=== PATIENT | female | born 1955 | race African-American/Black ===

== ENCOUNTER 2019-03-31 05:39 | Inpatient (IN) | payer OTHER ==
[~2019-03-31] VITALS: Ht 167.6 cm; Wt 77.6 kg
[2019-03-31] VITALS (17 sets, daily range): BP systolic 91–126; BP diastolic 51–70
[~2019-03-31 05:39] MED LIST: AMLODIPINE BESYL5 MG ORAL; ENALAPRIL-HCTZ1 EACH ORAL; PANTOPRAZOLE SO40 MG ORAL; TRAMADOL HCL50 MG ORAL; Vit D PO
--- NOTE | 2019-03-31 06:23 | Pre-Procedure Note/Attestation ---
Pre-Procedure Note/Attestation Complete Prior to Procedure Planned Procedure: right Procedure Narrative: End Stage Degenerative Joint Disease, Right Knee For Right Total Knee Arthroplasty Indications for Procedure Pre-Operative Diagnosis: End Stage Degenerative Joint Disease, Right Knee Attestation I attest that I discussed the nature of the procedure; its benefits; risks and complications; and alternatives (and the risks and benefits of such alternatives ), prior to the procedure, with the patient (or the patient's legal sales representative consultant). I attest that, if there was a reasonable possibility of needing a blood transfusion, the patient (or the patient's legal sales representative consultant) was given the [place] [facility] standardized written summary, pursuant to the [place] Blood Safety Act ([place] Health and Safety Code # 1645, as amended). I attest that I re-evaluated the patient just prior to the surgery and that there has been no change in the patient's H&P, except as documented below: Familia Vargas Mar 31, 2019 06:23
[2019-03-31] MEDS ORDERED: fentaNYL 100 mcg/2 mL IV ONE ×2 (06:41→07:34)
[2019-03-31] MEDS ORDERED: Duramorph PF 5mg/10ml amp ONE (06:43)
[2019-03-31] MEDS ORDERED: Succinylcholine 20mg/ml 10ml vial ONE (06:50)
[2019-03-31] MEDS ORDERED: Zemuron 50mg/5ml Inj IV ONE (07:00)
[2019-03-31] MEDS ORDERED: Sterile Water Irrig 1000ml IRRIG ONE (07:00)
[2019-03-31] MEDS ORDERED: LR 1000ml ONE (07:00)
[2019-03-31] MEDS ORDERED: NS Irrig 1000ml ONE (07:00)
[2019-03-31] MEDS ORDERED: Bacitracin 50000 Units Vial IRRIG ONE (07:27)
[2019-03-31] MEDS ORDERED: NeoSporin Gu Irrig 1ml Amp IRRIG ONE (07:28)
[2019-03-31] MEDS ORDERED: NS Irrig 1000ml IRRIG ONE (07:29)
[2019-03-31] MEDS ORDERED: LR 1000ml 1,000 ML IVLG SCH (07:50)
--- NOTE | 2019-03-31 07:50 | Anethesia Preoperative Eval ---
Anesthesia Pre-op PMH/ROS General Date of Evaluation: Mar 31, 2019 Time of Evaluation: 07:02 Anesthesiologist: Tanner ASA Score: ASA 2 Mallampati Score Class I : Soft palate, uvula, fauces, pillars visible Class II: Soft palate, uvula, fauces visible Class III: Soft palate, base of uvula visible Class IV: Only hard plate visible Mallampati Classification: Class II Surgeon: Tylor Diagnosis: R knee DJD Surgical Procedure: R knee TKA Anesthesia History: none Family History: no anesthesia problems Allergies: Coded Allergies: No Known Allergies (Unverified , 03/28/19) Medications: see eMAR Patient NPO?: Yes NPO Date: Mar 30, 2019 NPO Time: 2100 Past Medical History Cardiovascular: Reports: HTN - stable on meds; Denies: CAD, SC, valve dz, arrhythmia, other Pulmonary: Denies: asthma, COPD, [place], other Gastrointestinal/Genitourinary: Reports: GERD - mild; Denies: CRI, ESRD, other Neurologic/Psychiatric: Denies: dementia, CVA, depression/anxiety, TIA, other Endocrine: Denies: DM, hypothyroidism, steroids, other HEENT: Denies: cataract (L), cataract (R), glaucoma, [place] (L), [place] (R), other Hematology/Immune: Denies: anemia, DVT, bleeding disorder, other Musculoskeletal/Integumentary: Reports: DJD; Denies: OA, RA, DDD, edema, other PMH Narrative: as above PSxH Narrative: Knee arthroscopy Anesthesia Pre-op Phys. Exam Physician Exam Last Vital Signs Date Time Temp Pulse Resp B/P (MAP) Pulse Ox O2 Delivery O2 Flow Rate FiO2 03/31/19 06:36 97.7 65 20 126/69 (88) 100 03/31/19 06:09 Room Air Constitutional: NAD Neurologic: CN 2-12 intact Cardiovascular: RRR, no M/R/G Respiratory: CTA Gastrointestinal: S/NT/ND Airway Exam Mallampati Score: Class II MO: full Neck: flexible ROM: full Teeth: intact Dentures: no upper, no lower Anesthesia Pre-op A/P Labs see chart Studies Pre-op Studies: EKG - NSR, CXR - WNL Risk Assessment & Plan Assessment: ASA 2 Plan: GA with ETT Status Change Before Surgery: No Pre-Antibiotics Drug: Ancef 1gr. Given Within 1 Hr of Incision: Yes Time Given: 07:28 Rashad Hart MD Mar 31, 2019 07:50
[2019-03-31] MEDS ORDERED: Acetaminophen (Non formulary) 100 ML IV ONE (08:00)
[2019-03-31] MEDS ORDERED: DiphenhydrAMINE 50mg/ml Inj IVP PRN (08:00)
[2019-03-31] MEDS ORDERED: Midazolam 2mg/2ml Inj IVP PRN (08:00)
[2019-03-31] MEDS ORDERED: Meperidine 50mg/ml Inj(FOR RIGORS ONLY) IV PRN (08:00)
[2019-03-31] MEDS ORDERED: Ketorolac 30mg Inj IV PRN (08:00)
[2019-03-31] MEDS ORDERED: Milk of Magnesia 30ml Ud ORAL PRN (09:45)
[2019-03-31] MEDS ORDERED: HYDROmorphone 1mg/ml Carpuject SUBQ PRN (09:45)
[2019-03-31] MEDS ORDERED: HYDROcodone/Acetamin 7.5/325 tab ORAL PRN (09:45)
--- NOTE | 2019-03-31 09:45 | Immediate Post-Op Evaluation ---
Immediate Post-Op Evalulation Immediate Post-Op Evalulation Procedure: R knee arthroplasty Date of Evaluation: Mar 31, 2019 Time of Evaluation: 09:44 IV Fluids: 1600 Blood Products: none Estimated Blood Loss: 200 Urinary Output: none Blood Pressure Systolic: 106 Blood Pressure Diastolic: 62 Pulse Rate: 86 Respiratory Rate: 22 O2 Sat by Pulse Oximetry: 99 Temperature (Fahrenheit): 97.7 Pain Score (1-10): 3 Nausea: No Vomiting: No Complications none Patient Status: reacts, patent, extubated, none Hydration Status: adequate Rashad Hart MD Mar 31, 2019 09:45
[2019-03-31] MEDS ORDERED: PCA HYDROmorphone 1mg/ml 30 ML IV PRN (10:00)
[2019-03-31] MEDS ORDERED: Naloxone 0.4mg/ml Inj IVP PRN (10:00)
--- NOTE | 2019-03-31 11:00 | NUR ---
NURSE NOTES: Received report from Twyla HAGAN, pt a/a/o, sleeping in bed with no signs of distress or other issues at this time. surgical dressing dry and intact, ice pack in place in the right knee. Hemovac in place clamped at 09:40 (per report 80ml was emptied prior to pts arrival). RN will open at 17:40. IV on the left wrist gauge#19 running LR for now RN will review orders and changed as indicated by MD. RN will review orders and carry on as indicated by MD. call light within reach, bed in lowest position. side rales up x2. family at bed side. I will f/u as needed. Addendum: 03/31/19 at 2307 by ARGENIS FLORES RN addendum: hemovac noted off suction with sanguineous drainage; will follow orders on care of hemovac.
[2019-03-31] MEDS ORDERED: Rate Change PCA 1 Each MISC PRN (12:00)
[2019-03-31] MEDS ORDERED: Acetaminophen 500mg (ES) tab ORAL SCH (13:00)
[2019-03-31] MEDS ORDERED: Docusate 100mg cap ORAL SCH (13:00)
[2019-03-31 13:10] LABS: HEMATOCRIT 34.4 % (37.0-47.0); HEMOGLOBIN 11.5 G/DL (12.0-16.0); MEAN CORPUSCULAR VOLUME 96 FL (80-99); PLATELET COUNT 228 K/UL (150-450); RED CELL DISTRIBUTION WIDTH 11.8 % (11.6-14.8); WHITE BLOOD COUNT 17.7 K/UL (4.8-10.8)
[2019-03-31] MEDS: Docusate 100mg tablet ORAL SCH ×2 (13:47→18:53)
[2019-03-31] MEDS: D5 1/2NS w/KCl 20mEq 1,000 ML IV SCH (13:47)
[2019-03-31] MEDS: Acetaminophen 500mg (ES) tab ORAL SCH ×2 (13:48→18:53)
--- NOTE | 2019-03-31 13:53 | NUR ---
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
--- NOTE | 2019-03-31 14:46 | NUR ---
PT NOTE Patient set up on CPM 0-45 degrees flexion RLE with good alignment. 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 Patient instructed in use of CPM control buttons and duration of CPM. Will begin OOB activities in the a.m. Jess primer charger notified of patient's status.
[2019-03-31] MEDS: ceFAZolin sod 1 GM in D5W 55 ML IV SCH ×2 (15:07→23:34)
[2019-03-31] MEDS: Docusate Sod/Senna tab ORAL SCH (18:53)
[2019-03-31] MEDS: PCA shift volume MISC SCH (19:00)
[2019-03-31] MEDS ORDERED: PCA Education Pamphlet MISC ONE (20:00)
--- NOTE | 2019-03-31 20:23 | NUR ---
HAND-OFF: Report given to Monika HAGAN. pt in stable condition. - CPM in place. Hemovac output: 50ml.
--- NOTE | 2019-03-31 21:00 | NUR ---
nurse's notes: received patient awake, alert and oriented; fiance by the bedside for support; s/o right knee replacement; denies any pain; dressing is clean, dry and intact; good CSM; able to wiggle toes; denies numbness and tingling; tolerating cpm machine at 60 degrees; plan of care and pain management education done; encouraged to use INSTRUMENT DESIGNER for pain; patient understood teaching; tolerated sitting at EOB however, unable to stand up due to dizziness and nausea; zofran given; ice on surgical site. will continue to monitor
--- NOTE | 2019-04-01 03:00 | NUR ---
nurse's notes: hemovacc now to suction as ordered.
[2019-04-01] MEDS: D5 1/2NS w/KCl 20mEq 1,000 ML IV SCH ×2 (03:08→15:23)
[2019-04-01 04:00] VITALS: BP 112/70
[2019-04-01] MEDS: ceFAZolin sod 1 GM in D5W 55 ML IV SCH ×3 (06:50→23:44)
[2019-04-01] MEDS: PCA shift volume MISC SCH ×2 (07:14→19:13)
[2019-04-01 07:24] LABS: BASOPHILS % (AUTO) 0.4 % (0.0-2.0); EOSINOPHILS % (AUTO) 0.8 % (0.0-3.0); HEMATOCRIT 31.3 % (37.0-47.0); HEMOGLOBIN 10.4 G/DL (12.0-16.0); LYMPHOCYTES % (AUTO) 17.2 % (20.0-45.0); MEAN CORPUSCULAR VOLUME 96 FL (80-99); MONOCYTES % (AUTO) 9.7 % (1.0-10.0); PLATELET COUNT 196 K/UL (150-450); RED BLOOD COUNT 3.25 M/UL (4.20-5.40); RED CELL DISTRIBUTION WIDTH 11.8 % (11.6-14.8); WHITE BLOOD COUNT 11.7 K/UL (4.8-10.8)
--- NOTE | 2019-04-01 07:33 | NUR ---
NURSE NOTES: AWAKE/ALERT. PAIN SCALE 7/10. RT KNEE DRESSING DRY AND INTACT. HEMOVAC IN PLACE DRAINING SEROUS DRAINAGE. WITH GOOD CIRCULATION AND PALPABLE PEDAL PULSE. IN NO ACUTE DISTRESS.
[2019-04-01 08:00] VITALS: BP 110/58
[2019-04-01] MEDS: Docusate 100mg tablet ORAL SCH ×3 (08:31→17:23)
[2019-04-01] MEDS: Docusate Sod/Senna tab ORAL SCH ×2 (08:31→17:23)
[2019-04-01] MEDS: Tamsulosin 0.4mg cap ORAL SCH (08:32)
[2019-04-01] MEDS: Acetaminophen 500mg (ES) tab ORAL SCH (08:33)
--- NOTE | 2019-04-01 08:34 | General Progress Note ---
Assessment/Plan Assessment/Plan: End Stage Degenerative Joint Disease, Right Knee Right Total Knee Arthroplasty urinary retention PLAN 1. incentive spirometry 2. Lovenox 3. PT evaluation and therapy 4. Hydration 5. Pain management 6. discharge once stable with outpatient follow up 7. PRN cath for retention impression, plan, and exam edited and reviewed in detail care discussed with RN Subjective Allergies: Coded Allergies: No Known Allergies (Unverified , 03/28/19) Subjective asked to follow up post op urinary retention Objective Last 24 Hour Vital Signs Date Time Temp Pulse Resp B/P (MAP) Pulse Ox O2 Delivery O2 Flow Rate FiO2 04/01/19 08:11 Room Air 04/01/19 08:00 18 04/01/19 04:00 98.1 79 16 112/70 (84) 100 04/01/19 04:00 17 04/01/19 00:00 18 03/31/19 23:23 97.6 79 18 119/66 (83) 100 03/31/19 21:00 Nasal Cannula 2.0 03/31/19 20:00 97.4 84 17 112/70 (84) 100 03/31/19 20:00 97.4 84 17 112/70 (84) 100 03/31/19 20:00 17 03/31/19 19:23 99.4 03/31/19 16:00 97.5 72 20 102/62 (75) 100 03/31/19 16:00 15 03/31/19 14:00 97.0 69 18 92/54 (67) 96 03/31/19 13:00 97.5 74 18 91/54 (66) 96 03/31/19 12:07 15 03/31/19 12:00 97.6 78 18 91/53 (66) 96 03/31/19 11:52 15 03/31/19 11:37 15 03/31/19 11:30 97.8 78 20 93/54 (67) 100 03/31/19 11:22 15 03/31/19 11:15 97.8 78 20 93/54 (67) 100 03/31/19 11:00 97.8 85 18 96/51 (66) 100 03/31/19 10:50 15 03/31/19 10:40 97.9 77 18 101/52 100 Nasal Cannula 3 03/31/19 10:37 97.9 03/31/19 10:37 97.9 03/31/19 10:35 18 03/31/19 10:25 82 19 102/51 100 Nasal Cannula 3 03/31/19 10:20 16 03/31/19 10:16 97.8 03/31/19 10:10 85 23 111/60 100 Nasal Cannula 3 03/31/19 10:07 15 03/31/19 10:00 89 18 106/58 100 Simple Mask 6 03/31/19 09:51 86 16 108/55 100 Simple Mask 6 03/31/19 09:46 85 18 112/59 100 Simple Mask 6 03/31/19 09:45 86 22 99 03/31/19 09:41 97.8 91 22 106/63 100 Simple Mask 6 Intake and Output 03/31/19 04/01/19 19:00 07:00 Intake Total 1800 ml 505 ml Output Total 280 ml 2289 ml Balance 1520 ml -1784 ml Intake IV Total 1800 ml 505 ml Output Urine Total 900 ml Post Void Residual 1104 ml Drainage Total 80 ml 285 ml Estimated Blood Loss 200 ml Bladder Scan Volume Amount > 300 ml > 300 ml # Voids 1 Laboratory Tests 03/31/19 12:15: White Blood Count 17.7H, Red Blood Count 3.60L, Hemoglobin 11.5L, Hematocrit 34.4L, Mean Corpuscular Volume 96, Mean Corpuscular Hemoglobin 32.0H, Mean Corpuscular Hemoglobin Concent 33.5, Red Cell Distribution Width 11.8, Platelet Count 228, Mean Platelet Volume 6.7, Neutrophils (%) (Auto) , Lymphocytes (%) ( Auto) , Monocytes (%) (Auto) , Eosinophils (%) (Auto) , Basophils (%) (Auto) , Differential Total Cells Counted 100, Neutrophils % (Manual) 92H, Lymphocytes % (Manual) 7L, Monocytes % (Manual) 1, Eosinophils % (Manual) 0, Basophils % ( Manual) 0, Band Neutrophils 0, Platelet Estimate Adequate, Platelet Morphology Normal, Hypochromasia 1+ 04/01/19 04:50: White Blood Count 11.7H, Red Blood Count 3.25L, Hemoglobin 10.4L, Hematocrit 31.3L, Mean Corpuscular Volume 96, Mean Corpuscular Hemoglobin 31.8H, Mean Corpuscular Hemoglobin Concent 33.1, Red Cell Distribution Width 11.8, Platelet Count 196, Mean Platelet Volume 6.6, Neutrophils (%) (Auto) 72.0, Lymphocytes (% ) (Auto) 17.2L, Monocytes (%) (Auto) 9.7, Eosinophils (%) (Auto) 0.8, Basophils (%) (Auto) 0.4 Height (Feet): 5 Height (Inches): 6.00 Weight (Pounds): 173 Objective WDWN NAD clear breath sounds bilaterally without rhonchi or wheeze [id number] without MRG NABS nontender no HSM no CCE nonfocal Eron Epps MD Apr 01, 2019 08:34
--- NOTE | 2019-04-01 08:42 | Operative Note - PDOC ---
Operative Note Operative Note Date of Operation/Procedure: Mar 31, 2019 Chief Complaint: Right Knee pain Pre-op Diagnosis: End Stage Degenerative Joint Disease, Right Knee Procedure: Right Total Knee Resurfacing Post-op Diagnosis: same as pre-op Operative Findings: consistent w/pre-op dx studies Surgeon: Tylor Vegetable Sorter: BETZAIDA Vargas Anesthesiologist: Tanner Anesthesia: general Specimen: yes Complications: none Condition: stable Estimated Blood Loss: minimal Drains: hemovac Tourniquet time: 76 Implant(s) used?: Yes - Ellen Natural Knee Familia Vargas Apr 01, 2019 08:42
--- NOTE | 2019-04-01 08:44 | General Surgery Progress Note ---
General Surgery-Progress Note Subjective Procedure Performed Right Total Knee Resurfacing Symptoms: improved Objective Last 24 Hour Vital Signs Date Time Temp Pulse Resp B/P (MAP) Pulse Ox O2 Delivery O2 Flow Rate FiO2 04/01/19 08:33 90 110/58 04/01/19 08:32 110/58 04/01/19 08:11 Room Air 04/01/19 08:00 18 04/01/19 04:00 98.1 79 16 112/70 (84) 100 04/01/19 04:00 17 04/01/19 00:00 18 03/31/19 23:23 97.6 79 18 119/66 (83) 100 03/31/19 21:00 Nasal Cannula 2.0 03/31/19 20:00 97.4 84 17 112/70 (84) 100 03/31/19 20:00 97.4 84 17 112/70 (84) 100 03/31/19 20:00 17 03/31/19 19:23 99.4 03/31/19 16:00 97.5 72 20 102/62 (75) 100 03/31/19 16:00 15 03/31/19 14:00 97.0 69 18 92/54 (67) 96 03/31/19 13:00 97.5 74 18 91/54 (66) 96 03/31/19 12:07 15 03/31/19 12:00 97.6 78 18 91/53 (66) 96 03/31/19 11:52 15 03/31/19 11:37 15 03/31/19 11:30 97.8 78 20 93/54 (67) 100 03/31/19 11:22 15 03/31/19 11:15 97.8 78 20 93/54 (67) 100 03/31/19 11:00 97.8 85 18 96/51 (66) 100 03/31/19 10:50 15 03/31/19 10:40 97.9 77 18 101/52 100 Nasal Cannula 3 03/31/19 10:37 97.9 03/31/19 10:37 97.9 03/31/19 10:35 18 03/31/19 10:25 82 19 102/51 100 Nasal Cannula 3 03/31/19 10:20 16 03/31/19 10:16 97.8 03/31/19 10:10 85 23 111/60 100 Nasal Cannula 3 03/31/19 10:07 15 03/31/19 10:00 89 18 106/58 100 Simple Mask 6 03/31/19 09:51 86 16 108/55 100 Simple Mask 6 03/31/19 09:46 85 18 112/59 100 Simple Mask 6 03/31/19 09:45 86 22 99 03/31/19 09:41 97.8 91 22 106/63 100 Simple Mask 6 I&O Intake and Output 03/31/19 04/01/19 19:00 07:00 Intake Total 1800 ml 505 ml Output Total 280 ml 2289 ml Balance 1520 ml -1784 ml Intake IV Total 1800 ml 505 ml Output Urine Total 900 ml Post Void Residual 1104 ml Drainage Total 80 ml 285 ml Estimated Blood Loss 200 ml Bladder Scan Volume Amount > 300 ml > 300 ml # Voids 1 Dressing: dry Wound: clean Drains: hemovac Laboratory Tests Test 03/31/19 12:15 04/01/19 04:50 White Blood Count 17.7 K/UL (4.8-10.8) H 11.7 K/UL (4.8-10.8) H Red Blood Count 3.60 M/UL (4.20-5.40) L 3.25 M/UL (4.20-5.40) L Hemoglobin 11.5 G/DL (12.0-16.0) L 10.4 G/DL (12.0-16.0) L Hematocrit 34.4 % (37.0-47.0) L 31.3 % (37.0-47.0) L Mean Corpuscular Volume 96 FL (80-99) 96 FL (80-99) Mean Corpuscular Hemoglobin 32.0 PG (27.0-31.0) H 31.8 PG (27.0-31.0) H Mean Corpuscular Hemoglobin Concent 33.5 G/DL (32.0-36.0) 33.1 G/DL (32.0-36.0) Red Cell Distribution Width 11.8 % (11.6-14.8) 11.8 % (11.6-14.8) Platelet Count 228 K/UL (150-450) 196 K/UL (150-450) Mean Platelet Volume 6.7 FL (6.5-10.1) 6.6 FL (6.5-10.1) Neutrophils (%) (Auto) % (45.0-75.0) 72.0 % (45.0-75.0) Lymphocytes (%) (Auto) % (20.0-45.0) 17.2 % (20.0-45.0) L Monocytes (%) (Auto) % (1.0-10.0) 9.7 % (1.0-10.0) Eosinophils (%) (Auto) % (0.0-3.0) 0.8 % (0.0-3.0) Basophils (%) (Auto) % (0.0-2.0) 0.4 % (0.0-2.0) Differential Total Cells Counted 100 Neutrophils % (Manual) 92 % (45-75) H Lymphocytes % (Manual) 7 % (20-45) L Monocytes % (Manual) 1 % (1-10) Eosinophils % (Manual) 0 % (0-3) Basophils % (Manual) 0 % (0-2) Band Neutrophils 0 % (0-8) Platelet Estimate Adequate Platelet Morphology Normal Hypochromasia 1+ Additional Comments Wound clean and dry. Neuro / vascular intact in right low leg Dr. Supriya schafer/ Familia Vargas Apr 01, 2019 08:44
--- NOTE | 2019-04-01 09:25 | NUR ---
PT EVALUATION NOTE Patient seen for initial evaluation s/p R TKA, see complete evaluation for details. Patient presents with R knee pain and weakness which impairs patient's ability to transfer and ambulate. Patient required min assist for bed mobility, CGA for transfers with FWW and CGA for ambulation with FWW x 60 ft. Patient will benefit from skilled inpatient PT intervention to address strength, ROM, safety and functional mobility. Anticipate discharge home once medically cleared by MD. Recommend FWW for home use and follow up with outpatient PT. Addendum: 04/01/19 at 1310 by CRISTOBAL HUFFMAN PT Amended: Links added.
--- NOTE | 2019-04-01 09:36 | 48 Hour Post Anesthesia Eval ---
Post Anesthesia Evaluation Procedure: R knee arthroplasty Date of Evaluation: Apr 01, 2019 Time of Evaluation: 09:35 Blood Pressure Systolic: 110 0: 58 Pulse Rate: 90 Respiratory Rate: 17 Temperature (Fahrenheit): 98.1 O2 Sat by Pulse Oximetry: 100 Airway: patent Nausea: No Vomiting: No Pain Intensity: 3 Hydration Status: adequate Cardiopulmonary Status: Stable Follow-up Care/Observations: 0 Post-Anesthesia Complications: 0 Follow-up care needed: N/A Feroz Newman MD Apr 01, 2019 09:36
--- NOTE | 2019-04-01 09:42 | NUR ---
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
--- NOTE | 2019-04-01 10:44 | Diagnostic Imaging Report ---
Indication: Postop knee replacement COMPARISON: None Findings: 2 views of the right knee were obtained postoperatively. The cemented total knee arthroplasty is demonstrated. The alignment and position of the prosthetic is satisfactory. There are no abnormal interface lucencies or evidence of an acute fracture. Surgical skin fernando are noted. Drain noted. There is soft tissue swelling and air indicative of the recent surgery. Impression: Status post cemented right total knee arthroplasty. No radiographic evidence for complications in the immediate postop period.
[2019-04-01 12:00] VITALS: BP 101/57
[2019-04-01 16:00] VITALS: BP 115/70
--- NOTE | 2019-04-01 16:55 | Operative Note - Dictated ---
DATE OF OPERATION: 03/31/2019 SURGEON: Familia Snider MD. GROUP EXERCISE MANAGER: Janett Anguiano ANESTHESIA: General endotracheal, Dr. Hart. PREOPERATIVE DIAGNOSIS: Posttraumatic tricompartmental arthritis, right knee with varus weightbearing deformity and medial translation of the tibia on the femur. POSTOPERATIVE DIAGNOSIS: Posttraumatic tricompartmental arthritis, right knee with varus weightbearing deformity and medial translation of the tibia on the femur. OPERATIVE PROCEDURE: Total knee resurfacing arthroplasty using a Natural-Knee, with a #1 all-polyethylene patella cemented with an ingrowth size 2 tibial baseplate using two 35 millimeter APR screws and a 9 millimeter congruent polyethylene insert and an ingrowth #3 femoral component. The patient also had a lateral retinacular release and ligament rebalancing by release of the superficial, medial, collateral, and the deep posterior capsular ligaments. DESCRIPTION OF PROCEDURE: The patient was prepped and draped in the supine position. Bolster was placed under the hip to neutralize rotation of the knee. A block was used on the table to facilitate maintenance of the leg in flexion during the procedure and to prevent external rotation. The leg was prepped and draped freely. It was elevated and a proximal tourniquet was inflated to 300 mmHg. A medial parapatellar incision was made beginning along the medial edge of the quads extending along the medial edge of the patella to the infrapatellar ligament extending as far as the tibial tuberosity. Incision was carried through skin and subcutaneous tissue exposing the entire extensor apparatus. The medial capsule was opened just medial to the edge of the patella. The incision was carried along the infrapatellar ligaments and tibial tuberosity and proximally it was curved inward to split the quads tendon centrally. The lateral retinaculum was released as far as the tibial tuberosity insertion and the posteromedial capsular ligaments were identified and released to the semimembranosus semitendinosus at the posterior attachment of the capsule. The patella was then turned to 180 degrees, so its articular surface was facing anteriorly. All adherent synovium and scar tissue was removed around patella and the articular margin was identified and delineated. A patella cutting guide was used to make a flat surface by taking a little more on the medial articular surface and lateral, but preserving about two-thirds of the bulk and depth of the patella. The cut surface was planed. Anchoring holes were made for a size 1 all-poly patella and a trial reduction was done after drilling of the anchoring holes. The femur was then addressed by flexing the knee and cannulating the distal articular surface. A distal femoral cutting guide was then attached and an outrigger was placed to make sure that there was proper rotation and that the weightbearing alignment was good. The distal femoral, anterior, posterior, chamfer, and notch cuts were then made off the intramedullary guide reproducing the cut that was templated on the weightbearing x-ray that was taken prior to the procedure. The tibia was then subluxed forward and the remnant of the ACL was removed. The PCL was recessed posterior to the tibia. All remnants of the medial and lateral menisci were removed. The tibial surface was cleared particularly laterally where the differential cut required taking more lateral than medial proximal tibia. The tibial alignment jig was then placed and it was accommodated for slope rotation and depth of the cut. Again the cut matched that which had been templated on the preop weightbearing x-ray. The tibial cut was made taking 4 or 5 more millimeters laterally than medially preserving a good weightbearing margin on the medial side. A size 2 tibia was chosen and the central anchoring and peripheral anchoring holes were made. A trial tibia was then placed with a 9 millimeter congruent poly and range of motion and stability were checked. There was full extension, flexion to 110 with good tracking and good stability. Patellar tracking was likewise central and stable. The tibia was then inserted and two 35 millimeter APR screws were used to anchor the base plate, which fit nicely on the resected tibial margin. A polyethylene was then inserted with no step, no gap and the femoral component was tapped into place, which was also ingrowth. Range of motion and stability were checked. The patellar component was then cemented. All excess cement was removed and the cement was allowed to harden. Range of motion and stability were again checked with good central tracking of the patella on the femur. The tourniquet was released. Bleeders were coagulated. The medial capsule was closed with interrupted sutures of #1 Vicryl with subcutaneous and skin separately. A medium Hemovac was left in the lateral release site brought out through the skin. Suction however was not used for the first eight hours postop. A compression bandage was placed over the knee after the procedure and the patient was returned recovery room in good condition. Familia Snider M.D. DR: HAYDE JOB#: [id number] CC: VIKTORIA
--- NOTE | 2019-04-01 19:00 | NUR ---
NURSE NOTES: CONDITION STABLE. IN NO DISTRESS.
--- NOTE | 2019-04-01 19:27 | NUR ---
HAND-OFF: Report given to Ashish MENA RN.
--- NOTE | 2019-04-01 19:27 | NUR ---
NURSE NOTES: Received report from BENTLEY [place]. Patient AAO x 4, breathing unlabored without distress, discomfort, or sob. Denies pain at this time. Surgical site intact, clean, and dry. Hemovac intact and compressed. Left wrist IV noted intact and running fluid as ordered. MECH[employer]IC [employer]PERATIONAL TEST pump connected to the patient and encouraged to use for pain management. Bedside commode at bedside. Bed placed at the lowest with brakes and side rails for safety. Call light placed within reach. Will continue to monitor and provide care as ordered.
[2019-04-01 20:00] VITALS: BP_SYST 114; BP_DIAS 10; BP_DIAS 70
[2019-04-01] MEDS: HYDROmorphone 1mg/ml Carpuject IVP PRN (21:41)
[2019-04-02] VITALS (7 sets, daily range): BP systolic 98–139; BP diastolic 58–77
[2019-04-02] MEDS: D5 1/2NS w/KCl 20mEq 1,000 ML IV SCH ×3 (04:43→20:49)
[2019-04-02] MEDS: HYDROmorphone 1mg/ml Carpuject IVP PRN (06:19)
[2019-04-02 06:24] LABS: BASOPHILS % (AUTO) 0.4 % (0.0-2.0); EOSINOPHILS % (AUTO) 0.7 % (0.0-3.0); HEMATOCRIT 27.4 % (37.0-47.0); HEMOGLOBIN 9.2 G/DL (12.0-16.0); MEAN CORPUSCULAR VOLUME 95 FL (80-99); NEUTROPHILS % (AUTO) 78.8 % (45.0-75.0); PLATELET COUNT 166 K/UL (150-450); RED BLOOD COUNT 2.87 M/UL (4.20-5.40); RED CELL DISTRIBUTION WIDTH 11.4 % (11.6-14.8); WHITE BLOOD COUNT 12.1 K/UL (4.8-10.8)
[2019-04-02] MEDS: ceFAZolin sod 1 GM in D5W 55 ML IV SCH ×3 (07:02→23:00)
[2019-04-02] MEDS: PCA shift volume MISC SCH ×2 (07:09→19:14)
--- NOTE | 2019-04-02 07:23 | NUR ---
NURSE NOTES: AWAKE/ALERT. RT KNEE DRESSING DRY AND INTACT. WITH HEMOVAC IN PLACE DRAINING SEROSANGUINOUS DRAINAGE. WITH GOOD PEDAL PULSE. PAIN SCALE 5/10. IN NO ACUTE DISTRESS
--- NOTE | 2019-04-02 07:30 | NUR ---
HAND-OFF: Report given to BENTLEY Med[place]in. Rounds done. Pt in stable condition.
[2019-04-02] MEDS ORDERED: Naloxone 0.4mg/ml Inj IVP PRN (08:48)
[2019-04-02] MEDS: Docusate 100mg tablet ORAL SCH ×3 (08:52→17:31)
[2019-04-02] MEDS: Docusate Sod/Senna tab ORAL SCH ×2 (08:52→17:31)
[2019-04-02] MEDS ORDERED: PCA HYDROmorphone 1mg/ml 30 ML IV PRN (08:53)
[2019-04-02] MEDS: Tamsulosin 0.4mg cap ORAL SCH (08:53)
[2019-04-02] MEDS ORDERED: Rate Change PCA 1 Each MISC PRN (09:00)
--- NOTE | 2019-04-02 11:49 | NUR ---
*-* NO INSURANCE INFORMATION IN THE BAR UNABLE TO SEND CLINICALS OR REVIEWS *-*
--- NOTE | 2019-04-02 14:30 | Pulmonology Progress Note ---
Assessment/Plan Assessment/Plan Pulmonary Progress Note Assessment/Plan: End Stage Degenerative Joint Disease, Right Knee S/p Right Total Knee Arthroplasty urinary retention PLAN 1. incentive spirometry 2. Lovenox 3. PT evaluation and therapy 4. Hydration 5. Pain management 6. discharge once stable with outpatient follow up 7. PRN cath for retention impression, plan, and exam edited and reviewed in detail care discussed with RN Subjective Allergies: Coded Allergies: No Known Allergies (Unverified , 03/28/19) Subjective asked to follow up post op urinary retention Objective Vital Signs Noted Laboratory Tests Noted 03/31/19 12:15: White Blood Count 17.7H, Red Blood Count 3.60L, Hemoglobin 11.5L, Hematocrit 34.4L, Mean Corpuscular Volume 96, Mean Corpuscular Hemoglobin 32.0H, Mean Corpuscular Hemoglobin Concent 33.5, Red Cell Distribution Width 11.8, Platelet Count 228, Mean Platelet Volume 6.7, Neutrophils (%) (Auto) , Lymphocytes (%) ( Auto) , Monocytes (%) (Auto) , Eosinophils (%) (Auto) , Basophils (%) (Auto) , Differential Total Cells Counted 100, Neutrophils % (Manual) 92H, Lymphocytes % (Manual) 7L, Monocytes % (Manual) 1, Eosinophils % (Manual) 0, Basophils % ( Manual) 0, Band Neutrophils 0, Platelet Estimate Adequate, Platelet Morphology Normal, Hypochromasia 1+ 04/01/19 04:50: White Blood Count 11.7H, Red Blood Count 3.25L, Hemoglobin 10.4L, Hematocrit 31.3L, Mean Corpuscular Volume 96, Mean Corpuscular Hemoglobin 31.8H, Mean Corpuscular Hemoglobin Concent 33.1, Red Cell Distribution Width 11.8, Platelet Count 196, Mean Platelet Volume 6.6, Neutrophils (%) (Auto) 72.0, Lymphocytes (% ) (Auto) 17.2L, Monocytes (%) (Auto) 9.7, Eosinophils (%) (Auto) 0.8, Basophils (%) (Auto) 0.4 Height (Feet): 5 Height (Inches): 6.00 Weight (Pounds): 173 Objective WDWN NAD clear breath sounds bilaterally without rhonchi or wheeze [id number] without MRG NABS nontender no HSM no CCE nonfocal Subjective ROS Limited/Unobtainable: No Allergies: Coded Allergies: No Known Allergies (Unverified , 03/28/19) Objective Last 24 Hour Vital Signs Date Time Temp Pulse Resp B/P (MAP) Pulse Ox O2 Delivery O2 Flow Rate FiO2 04/02/19 12:00 98.0 77 20 129/72 (91) 97 04/02/19 12:00 20 04/02/19 08:53 111/62 04/02/19 08:52 106 111/62 04/02/19 08:15 Room Air 04/02/19 08:00 18 04/02/19 08:00 99.3 106 18 111/62 (78) 97 04/02/19 04:00 16 04/02/19 04:00 100.1 99 16 98/59 (72) 97 04/02/19 00:00 17 04/02/19 00:00 99.5 99 18 114/65 (81) 98 04/01/19 21:33 114/70 04/01/19 21:00 Room Air 04/01/19 20:00 99.0 96 18 114/70 (85) 99 04/01/19 20:00 18 04/01/19 19:00 99 Nasal Cannula 2.0 28 04/01/19 16:00 97.7 86 18 115/70 (85) 98 04/01/19 16:00 18 Intake and Output 04/01/19 04/02/19 19:00 07:00 Intake Total 1180 ml 1045 ml Output Total 640 ml 80 ml Balance 540 ml 965 ml Intake Oral 300 ml 240 ml IV Total 880 ml 805 ml Output Urine Total 450 ml Drainage Total 190 ml 80 ml # Voids 2 2 Microbiology Date/Time Source Procedure Growth Status 03/31/19 06:30 Nasal Nares MRSA Culture - Final NO METHICILLIN RESISTANT STAPH AUREUS... Complete Laboratory Tests 04/02/19 04:55: White Blood Count 12.1H, Red Blood Count 2.87L, Hemoglobin 9.2L, Hematocrit 27.4L, Mean Corpuscular Volume 95, Mean Corpuscular Hemoglobin 32.2H, Mean Corpuscular Hemoglobin Concent 33.8, Red Cell Distribution Width 11.4L, Platelet Count 166, Mean Platelet Volume 6.5, Neutrophils (%) (Auto) 78.8H, Lymphocytes (%) (Auto) 12.0L, Monocytes (%) (Auto) 8.0, Eosinophils (%) (Auto) 0.7, Basophils (%) (Auto) 0.4 Current Medications Medications (Trade) Dose Ordered Sig/Aidan Route PRN Reason Start Time Stop Time Status Last Admin Dose Admin Acetaminophen (Tylenol) 1,000 mg Q8HR ORAL 04/02/19 18:00 05/02/19 17:59 Amlodipine Besylate (Norvasc) 5 mg DAILY ORAL 04/01/19 09:00 05/01/19 08:59 04/02/19 08:52 Bisacodyl (Dulcolax) 10 mg ONCE PRN RECTAL if no BM by POD#2 04/02/19 00:00 04/04/19 23:59 Cefazolin Sodium 1 gm/Dextrose 55 ml @ 110 mls/hr Q8H IV 03/31/19 15:30 04/07/19 15:29 04/02/19 07:02 Dextrose/ Electrolytes 1,000 ml @ 75 mls/hr [id number] IV 03/31/19 12:00 04/30/19 11:59 04/02/19 04:43 Docusate Sodium (Colace) 100 mg THREE TIMES A DAY ORAL 03/31/19 13:00 04/30/19 12:59 04/02/19 12:44 Enalapril Maleate (Vasotec) 10 mg Q12HR ORAL 04/01/19 09:00 05/01/19 08:59 04/02/19 08:53 Hydrochlorothiazide (Hydrodiuril) 25 mg Q12HR ORAL 04/01/19 09:00 05/01/19 08:59 04/02/19 08:53 Hydromorphone HCl 30 ml @ 0 mls/hr Q24H PRN IV For Pain 04/02/19 08:53 04/04/19 08:52 04/02/19 13:48 Magnesium Hydroxide (Mom) 30 ml DAILYPRN PRN ORAL Constipation 03/31/19 09:45 04/30/19 09:44 Miscellaneous Medication (ANALYST BUSINESS ANALYSIS Rate Change) 1 ea DAILY PRN MISC rate change 04/02/19 09:00 04/04/19 08:59 Miscellaneous Medication (ANALYST BUSINESS ANALYSIS shift volume) 1 ea Q12HR@0700,1900 MISC 04/02/19 19:00 04/04/19 18:59 Naloxone HCl (Narcan) 0.1 mg Q1M PRN IVP RR<10/min OR SBP<90 mmHg 04/02/19 08:48 04/04/19 08:46 Ondansetron HCl (Zofran) 4 mg Q6H PRN IVP Nausea & Vomiting 03/31/19 09:45 04/30/19 09:44 04/01/19 13:56 Pantoprazole (Protonix) 40 mg DAILY ORAL 04/01/19 09:00 05/01/19 08:59 04/02/19 08:52 Senna/Docusate Sodium (Yolis-Colace) 1 tab TWICE A DAY ORAL 03/31/19 18:00 04/30/19 17:59 04/02/19 08:52 Tamsulosin HCl (Flomax) 0.4 mg DAILY ORAL 04/01/19 09:00 05/01/19 08:59 04/02/19 08:53 Temazepam (Restoril) 7.5 mg HSPRN PRN ORAL Insomnia 03/31/19 21:00 04/07/19 20:59 Syed Mercedes MD Apr 02, 2019 14:30
--- NOTE | 2019-04-02 15:06 | NUR ---
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
[2019-04-02] MEDS: Acetaminophen 500mg (ES) tab ORAL SCH (17:31)
--- NOTE | 2019-04-02 18:58 | NUR ---
NURSE NOTES: QUIET IN BED. IN NO ACUTE DISTRES. CONDITION STABLE.
--- NOTE | 2019-04-02 19:21 | NUR ---
HAND-OFF: Report given to Sakina WOO RN.
[2019-04-03] VITALS (8 sets, daily range): BP systolic 91–128; BP diastolic 48–78
[2019-04-03] MEDS: Acetaminophen 500mg (ES) tab ORAL SCH ×3 (05:10→22:25)
--- NOTE | 2019-04-03 05:50 | NUR ---
NURSE NOTE: Pt is A/Ox4 and the is at the bedside. Physical assessment completed and orders reviewed. No evidence of pressure injuries. Call young remains within reach and bed alarm is activated. SCD is on the left LE. Dressing on RLE is clean, dry, and intact. Drainage from the hemovac is serosanguineous. Pt temp with 0400 VS was 100.1. HR is 107. Tylenol given and pt instructed to use IS, will re-assess. Will continue to monitor.
[2019-04-03] MEDS: ceFAZolin sod 1 GM in D5W 55 ML IV SCH ×3 (06:43→22:31)
[2019-04-03] MEDS: PCA shift volume MISC SCH ×2 (07:00→19:13)
[2019-04-03 07:04] LABS: BASOPHILS % (AUTO) 0.8 % (0.0-2.0); EOSINOPHILS % (AUTO) 1.5 % (0.0-3.0); HEMATOCRIT 24.8 % (37.0-47.0); HEMOGLOBIN 8.4 G/DL (12.0-16.0); LYMPHOCYTES % (AUTO) 14.7 % (20.0-45.0); MEAN CORPUSCULAR VOLUME 94 FL (80-99); MONOCYTES % (AUTO) 7.4 % (1.0-10.0); NEUTROPHILS % (AUTO) 75.6 % (45.0-75.0); PLATELET COUNT 164 K/UL (150-450); RED BLOOD COUNT 2.63 M/UL (4.20-5.40); RED CELL DISTRIBUTION WIDTH 12.3 % (11.6-14.8); WHITE BLOOD COUNT 11.4 K/UL (4.8-10.8)
--- NOTE | 2019-04-03 07:20 | NUR ---
NURSE NOTES: Report received from Yady HAGAN, rounds made. Patient resting in high fowlers position in bed. No distress on RA, encouraged IS use. IVF (D5 1/2 + 20 KCL) infusing at 75 ml/hr. COMMERCIAL GLAZIER (Dilaudid) connected (0.4 mg/6 minute/6 mg lockout). Denies need for additional pain medication. Right knee tiana wrap dressing CDI, Hemovac in place, serosanguineous output noted in tubing, ice compress in place. Left SCD on. Left hand mild swelling from old IV site, elevated on pillow, no redness or tenderness noted. Call light in reach, bed in lowest position, will continue to monitor.
--- NOTE | 2019-04-03 07:59 | NUR ---
CASE MANAGEMENT:REVIEW 04/03/19 SI: POD #3 S/P RT TOTAL KNEE RESURFACING T 100.1 HR 107 RR 16 B/P 105/53 SATS 99% ON RA WBC 11.4 IS: IV ANCEF Q8HRS PRECISION ASSEMBLER BENCH DILAUDID NORVASC PO QD PROTONIX PO QD VASOTEC PO Q12 HCTZ PO Q12 FLOMAX PO QD : MED/SURG STATUS 3 EAST DCP: FROM HOME
--- NOTE | 2019-04-03 08:30 | General Progress Note ---
Assessment/Plan Assessment/Plan: End Stage Degenerative Joint Disease, Right Knee Right Total Knee Arthroplasty urinary retention PLAN 1. incentive spirometry 2. Lovenox 3. PT evaluation and therapy 4. Hydration 5. Pain management 6. discharge once stable with outpatient follow up impression, plan, and exam edited and reviewed in detail care discussed with RN Subjective Allergies: Coded Allergies: No Known Allergies (Unverified , 03/28/19) Subjective post op care noted Objective Last 24 Hour Vital Signs Date Time Temp Pulse Resp B/P (MAP) Pulse Ox O2 Delivery O2 Flow Rate FiO2 04/03/19 06:07 98.5 106 16 99 04/03/19 05:40 98.5 04/03/19 04:15 100.1 107 16 105/53 (70) 99 04/03/19 04:00 18 04/03/19 00:28 18 04/03/19 00:23 98.2 86 16 96/59 (71) 99 04/03/19 00:21 98.9 97 18 104/64 (77) 98 04/02/19 21:00 Room Air 04/02/19 20:49 101/58 04/02/19 20:00 95 Room Air 21 04/02/19 20:00 16 04/02/19 16:00 98.1 85 19 135/77 (96) 99 04/02/19 16:00 19 04/02/19 14:25 97.9 72 20 139/75 (96) 97 04/02/19 14:18 98.0 04/02/19 13:49 20 04/02/19 13:48 20 04/02/19 12:00 98.0 77 20 129/72 (91) 97 04/02/19 12:00 20 04/02/19 08:53 111/62 04/02/19 08:52 106 111/62 Intake and Output 04/02/19 04/03/19 19:00 07:00 Intake Total 1442.5 ml 450 ml Output Total 85 ml Balance 1357.5 ml 450 ml Intake Oral 600 ml IV Total 842.5 ml 450 ml Drainage Total 85 ml # Voids 1 1 Laboratory Tests 04/03/19 05:45: White Blood Count 11.4H, Red Blood Count 2.63L, Hemoglobin 8.4L, Hematocrit 24.8L, Mean Corpuscular Volume 94, Mean Corpuscular Hemoglobin 32.1H, Mean Corpuscular Hemoglobin Concent 34.0, Red Cell Distribution Width 12.3, Platelet Count 164, Mean Platelet Volume 6.4L, Neutrophils (%) (Auto) 75.6H, Lymphocytes (%) (Auto) 14.7L, Monocytes (%) (Auto) 7.4, Eosinophils (%) (Auto) 1.5, Basophils (%) (Auto) 0.8 Height (Feet): 5 Height (Inches): 6.00 Weight (Pounds): 171 Objective WDWN NAD clear breath sounds bilaterally without rhonchi or wheeze [id number] without MRG NABS nontender no HSM no CCE nonfocal Eron Epps MD Apr 03, 2019 08:30
[2019-04-03] MEDS: Tamsulosin 0.4mg cap ORAL SCH (08:49)
[2019-04-03] MEDS: Docusate 100mg tablet ORAL SCH ×3 (08:49→18:14)
[2019-04-03] MEDS: Docusate Sod/Senna tab ORAL SCH ×2 (08:49→18:14)
[2019-04-03 08:56] LABS: ANION GAP 5 mmol/L (5-15); BLOOD UREA NITROGEN 7 mg/dL (7-18); CALCIUM 8.9 MG/DL (8.5-10.1); CARBON DIOXIDE 29 MMOL/L (21-32); CHLORIDE 102 MMOL/L (98-107); CREATININE 0.7 MG/DL (0.55-1.30); POTASSIUM 4.2 MMOL/L (3.5-5.1); SODIUM 136 MMOL/L (136-145)
[2019-04-03] MEDS: Enoxaparin 40mg Inj SUBQ SCH (09:03)
--- NOTE | 2019-04-03 10:00 | NUR ---
NURSE NOTES: Dr. Epps notified of low blood pressure 91/48 mm Hg, order received for parameters, see eMAR. Patient asymptomatic, no dizziness or lightheadedness. Encouraged PO hydration. IVF discontinued as ordered. 0.9 NS maintenance line (10 ml/hr) started for LOG RAFTER Dilaudid. Patient updated on new order for Lovenox, verbalized understanding. Will continue to monitor.
--- NOTE | 2019-04-03 13:05 | General Surgery Progress Note ---
General Surgery-Progress Note Subjective Procedure Performed Right Total Knee Resurfacing Symptoms: improved Objective Last 24 Hour Vital Signs Date Time Temp Pulse Resp B/P (MAP) Pulse Ox O2 Delivery O2 Flow Rate FiO2 04/03/19 12:00 97.5 95 20 111/74 (86) 99 04/03/19 12:00 18 04/03/19 09:00 Room Air 04/03/19 08:59 91/48 04/03/19 08:59 79 91/48 04/03/19 08:40 79 91/48 (62) 04/03/19 08:00 18 04/03/19 08:00 97.6 94 18 108/62 (77) 95 04/03/19 06:07 98.5 106 16 99 04/03/19 05:40 98.5 04/03/19 04:15 100.1 107 16 105/53 (70) 99 04/03/19 04:00 18 04/03/19 00:28 18 04/03/19 00:23 98.2 86 16 96/59 (71) 99 04/03/19 00:21 98.9 97 18 104/64 (77) 98 04/02/19 21:00 Room Air 04/02/19 20:49 101/58 04/02/19 20:00 95 Room Air 21 04/02/19 20:00 16 04/02/19 16:00 98.1 85 19 135/77 (96) 99 04/02/19 16:00 19 04/02/19 14:25 97.9 72 20 139/75 (96) 97 04/02/19 14:18 98.0 04/02/19 13:49 20 04/02/19 13:48 20 I&O Intake and Output 04/02/19 04/03/19 19:00 07:00 Intake Total 1442.5 ml 450 ml Output Total 85 ml Balance 1357.5 ml 450 ml Intake Oral 600 ml IV Total 842.5 ml 450 ml Drainage Total 85 ml # Voids 1 1 Dressing: dry Wound: clean Laboratory Tests Test 04/03/19 05:45 White Blood Count 11.4 K/UL (4.8-10.8) H Red Blood Count 2.63 M/UL (4.20-5.40) L Hemoglobin 8.4 G/DL (12.0-16.0) L Hematocrit 24.8 % (37.0-47.0) L Mean Corpuscular Volume 94 FL (80-99) Mean Corpuscular Hemoglobin 32.1 PG (27.0-31.0) H Mean Corpuscular Hemoglobin Concent 34.0 G/DL (32.0-36.0) Red Cell Distribution Width 12.3 % (11.6-14.8) Platelet Count 164 K/UL (150-450) Mean Platelet Volume 6.4 FL (6.5-10.1) L Neutrophils (%) (Auto) 75.6 % (45.0-75.0) H Lymphocytes (%) (Auto) 14.7 % (20.0-45.0) L Monocytes (%) (Auto) 7.4 % (1.0-10.0) Eosinophils (%) (Auto) 1.5 % (0.0-3.0) Basophils (%) (Auto) 0.8 % (0.0-2.0) Sodium Level 136 MMOL/L (136-145) Potassium Level 4.2 MMOL/L (3.5-5.1) Chloride Level 102 MMOL/L (98-107) Carbon Dioxide Level 29 MMOL/L (21-32) Anion Gap 5 mmol/L (5-15) Blood Urea Nitrogen 7 mg/dL (7-18) Creatinine 0.7 MG/DL (0.55-1.30) Estimat Glomerular Filtration Rate > 60 mL/min (>60) Glucose Level 112 MG/DL (74-106) H Calcium Level 8.9 MG/DL (8.5-10.1) Additional Comments Wound clean and dry, output above threshold for removal. Up and working with physical therapy. Dr. Epps following. Should be able to go directly home when ready. Familia Vargas Apr 03, 2019 13:05
--- NOTE | 2019-04-03 19:15 | NUR ---
HAND-OFF: Report given to Serge HAGAN. Output: Hemovac: 70 mls
[2019-04-04] VITALS: BP 108/70
[2019-04-04 04:00] VITALS: BP 106/56
--- NOTE | 2019-04-04 05:37 | NUR ---
NURSE NOTE: Pt is A/Ox4 with stable VS. Pt's is at the bedside. Orders reviewed and physical assessment completed. Pt ambulated in room with walker and RN assist. While in bed both legs are resting on a rolled towel and the left SCD is on. Pt 2100 BP meds given an hour apart due to a sustained systolic in the low 100's (see MAR, see VS). Pt bed call young remains within reach. Bed is low and locked with activated bed alarm. Will continue to monitor.
[2019-04-04 06:11] LABS: BASOPHILS % (AUTO) 0.5 % (0.0-2.0); EOSINOPHILS % (AUTO) 2.1 % (0.0-3.0); HEMATOCRIT 25.4 % (37.0-47.0); HEMOGLOBIN 8.5 G/DL (12.0-16.0); LYMPHOCYTES % (AUTO) 12.4 % (20.0-45.0); MEAN CORPUSCULAR VOLUME 96 FL (80-99); MONOCYTES % (AUTO) 8.3 % (1.0-10.0); NEUTROPHILS % (AUTO) 76.7 % (45.0-75.0); PLATELET COUNT 199 K/UL (150-450); RED BLOOD COUNT 2.66 M/UL (4.20-5.40); RED CELL DISTRIBUTION WIDTH 11.2 % (11.6-14.8); WHITE BLOOD COUNT 11.4 K/UL (4.8-10.8)
[2019-04-04] MEDS: Acetaminophen 500mg (ES) tab ORAL SCH (06:24)
[2019-04-04] MEDS: ceFAZolin sod 1 GM in D5W 55 ML IV SCH (06:31)
[2019-04-04] MEDS: PCA shift volume MISC SCH (07:07)
--- NOTE | 2019-04-04 07:10 | NUR ---
NURSE NOTES: Report received from Yady HAGAN, rounds made. Patient resting in semi-fowlers position, in bed. Alert, oriented x4 calm. No distress on RA. SOUNDSCRIBER MECHANIC (Dilaudid) connected with 0.9 NS at 10 ml/hr to LAC, site asymptomatic. Pain 5/10 to right surgical site, denies need for additional pain medication at this time, denies ice pack at this time. . Appetite good. No NV. Left SCD on. RLE CMS+, skin warm, wiggles, mild swelling to ankle, no NT, pulses palpable. Right knee dressing CDI with tiana wrap. Rolled towel beneath right ankle. Hemovac in place, serosanguineous noted in tubing. Encouraged IS. Call light in reach, bed in lowest position, will continue to monitor.
--- NOTE | 2019-04-04 07:21 | NUR ---
HAND-OFF: Report given to Criss. Pt is stable. Endorsed to Criss the [employer] order renewal time and [employer] syringe and tubing change is due at 1400.
[2019-04-04 08:00] VITALS: BP 114/58
[2019-04-04] MEDS: Docusate 100mg tablet ORAL SCH ×2 (09:32→13:00)
[2019-04-04] MEDS: Enoxaparin 40mg Inj SUBQ SCH (09:35)
[2019-04-04] MEDS: Docusate Sod/Senna tab ORAL SCH (09:36)
[2019-04-04] MEDS: Tamsulosin 0.4mg cap ORAL SCH (09:37)
[2019-04-04] MEDS ORDERED: Tubing IV Secondary IV ONE (09:38)
[2019-04-04] MEDS ORDERED: NS 500ML ONE (09:38)
--- NOTE | 2019-04-04 11:00 | NUR ---
NURSE NOTES: Hemovac discontinued by Dr. Vargas this AM ([id number]). TALENT PARTNER discontinued at 1000 as ordered, patient aware, verbalized understanding. Dressing changed by RN as ordered, new xeroform gauze applied to fernando/covered with 4x4 gauze, wrapped with Isidro wrap and secured with silk tape (old dressing with dried old blood noted/original xeroform stuck to gauze), fernando intact, mild swelling, no redness or bruising noted. Instructed patient and spouse on wound care steps with proper hand washing, clean technique and infection control (how to dispose soiled dressing at home), verbalized understanding. Dr. Vargas notified of no PO pain medication ordered PRN for alternative since TALENT PARTNER discontinued. Orders received, see eMAR.
--- NOTE | 2019-04-04 11:07 | General Surgery Progress Note ---
General Surgery-Progress Note Subjective Procedure Performed Right Total Knee Resurfacing Symptoms: improved Objective Last 24 Hour Vital Signs Date Time Temp Pulse Resp B/P (MAP) Pulse Ox O2 Delivery O2 Flow Rate FiO2 04/04/19 09:37 114/58 04/04/19 09:37 89 114/58 04/04/19 08:00 18 04/04/19 08:00 98.3 89 20 114/58 (76) 98 04/04/19 04:15 18 04/04/19 04:00 97.8 92 18 106/56 (73) 99 04/04/19 00:31 18 04/04/19 00:00 98.2 92 18 108/70 (83) 98 04/03/19 21:00 Room Air 04/03/19 20:58 103/59 04/03/19 20:00 98.1 84 18 128/78 (95) 98 04/03/19 20:00 18 04/03/19 16:00 18 04/03/19 16:00 98.8 93 18 119/71 (87) 100 04/03/19 12:00 97.5 95 20 111/74 (86) 99 04/03/19 12:00 18 I&O Intake and Output 04/03/19 04/04/19 18:59 06:59 Intake Total 570 ml Output Total 130 ml Balance 440 ml Intake Oral 420 ml IV Total 150 ml Drainage Total 130 ml # Voids 5 3 Dressing: dry Wound: clean Laboratory Tests Test 04/04/19 05:00 White Blood Count 11.4 K/UL (4.8-10.8) H Red Blood Count 2.66 M/UL (4.20-5.40) L Hemoglobin 8.5 G/DL (12.0-16.0) L Hematocrit 25.4 % (37.0-47.0) L Mean Corpuscular Volume 96 FL (80-99) Mean Corpuscular Hemoglobin 31.9 PG (27.0-31.0) H Mean Corpuscular Hemoglobin Concent 33.4 G/DL (32.0-36.0) Red Cell Distribution Width 11.2 % (11.6-14.8) L Platelet Count 199 K/UL (150-450) Mean Platelet Volume 6.7 FL (6.5-10.1) Neutrophils (%) (Auto) 76.7 % (45.0-75.0) H Lymphocytes (%) (Auto) 12.4 % (20.0-45.0) L Monocytes (%) (Auto) 8.3 % (1.0-10.0) Eosinophils (%) (Auto) 2.1 % (0.0-3.0) Basophils (%) (Auto) 0.5 % (0.0-2.0) Additional Comments Wound clean and dry, drain removed. Patient meeting Physical Therapy goles. Dr. Supriya schafer. Patent ready for discharge from orthopedic standpoint. Familia Vargas Apr 04, 2019 11:07
[2019-04-04] MEDS ORDERED: HYDROcodone/Acetamin 10/325 tab ORAL SCH (11:15)
--- NOTE | 2019-04-04 11:59 | NUR ---
NURSE NOTES: Spoke with Jenny in pharmacy regarding Mackay 10 mg and alert stating this Mackay dose will exceed the 3000 mg Acetaminophen in 24 hours, okay to override (choice of therapy) and administer. see eMAR.
[2019-04-04 12:00] VITALS: BP 125/66
--- NOTE | 2019-04-04 13:35 | NUR ---
NURSE NOTES: Discharge instructions and surgical wound dressing change steps reviewed with patient, spouse and niece, verbalized understanding. Supplies (4x4 gauze, silk tape, alcohol swabs, gloves, remaining xeroform) provided/sent home with patient. FWW supplied and put together for patient prior to discharge. Patient already has BSC at home. All belongings, discharge instructions, supplies and FWW sent home with patient. IV discontinued, no active bleeding. Patient sent down to [facility] via with Jes HAHN, in stable condition. Discharged home at 1335. Addendum: 04/04/19 at 1438 by Criss Pond RN Sent ice pack home with patient as well.
--- NOTE | 2019-04-04 16:23 | Pulmonology Progress Note ---
Assessment/Plan Assessment/Plan Pulmonary Progress Note Assessment/Plan: End Stage Degenerative Joint Disease, Right Knee S/p Right Total Knee Arthroplasty Seen earlier, no SOB PLAN 1. incentive spirometry 2. Lovenox 3. PT evaluation and therapy 4. Hydration 5. Pain management 6. discharge once stable with outpatient follow up 7. PRN cath for retention impression, plan, and exam edited and reviewed in detail care discussed with RN Subjective Allergies: Coded Allergies: No Known Allergies (Unverified , 03/28/19) Subjective asked to follow up post op urinary retention Objective Vital Signs Noted Laboratory Tests Noted Height (Inches): 6.00 Weight (Pounds): 173 Objective WDWN NAD clear breath sounds bilaterally without rhonchi or wheeze [id number] without MRG NABS nontender no HSM no CCE nonfocal Subjective ROS Limited/Unobtainable: No Allergies: Coded Allergies: No Known Allergies (Unverified , 03/28/19) Objective Last 24 Hour Vital Signs Date Time Temp Pulse Resp B/P (MAP) Pulse Ox O2 Delivery O2 Flow Rate FiO2 04/04/19 12:00 98.6 108 18 125/66 (85) 99 04/04/19 09:37 114/58 04/04/19 09:37 89 114/58 04/04/19 09:00 Room Air 04/04/19 08:00 18 04/04/19 08:00 98.3 89 20 114/58 (76) 98 04/04/19 04:15 18 04/04/19 04:00 97.8 92 18 106/56 (73) 99 04/04/19 00:31 18 04/04/19 00:00 98.2 92 18 108/70 (83) 98 04/03/19 21:00 Room Air 04/03/19 20:58 103/59 04/03/19 20:00 98.1 84 18 128/78 (95) 98 04/03/19 20:00 18 Intake and Output 04/03/19 04/04/19 19:00 07:00 Intake Total 570 ml Output Total 130 ml Balance 440 ml Intake Oral 420 ml IV Total 150 ml Drainage Total 130 ml # Voids 5 3 Laboratory Tests 04/04/19 05:00: White Blood Count 11.4H, Red Blood Count 2.66L, Hemoglobin 8.5L, Hematocrit 25.4L, Mean Corpuscular Volume 96, Mean Corpuscular Hemoglobin 31.9H, Mean Corpuscular Hemoglobin Concent 33.4, Red Cell Distribution Width 11.2L, Platelet Count 199, Mean Platelet Volume 6.7, Neutrophils (%) (Auto) 76.7H, Lymphocytes (%) (Auto) 12.4L, Monocytes (%) (Auto) 8.3, Eosinophils (%) (Auto) 2.1, Basophils (%) (Auto) 0.5 Syed Mercedes MD Apr 04, 2019 16:23
--- NOTE | 2019-04-06 22:33 | Discharge Summary ---
Discharge Summary Discharge Summary _ DATE OF ADMISSION: 03/31/2019 DATE OF DISCHARGE: 04/04/2019 DISCHARGED BY: Dr. Jo-Ann Epps CONSULTANTS: Dr. Familia Marino BRIEF HOSPITAL COURSE: Patient is a 63-year-old female, with end-stage degenerative joint disease of the right knee, was admitted and underwent right knee arthroplasty. The patient also had a lateral retinacular release and ligament rebalancing by release of the superficial medial, collateral, and deep posterior capsular ligaments. She tolerated procedure well. Postoperatively she was given postop care. She was given incentive spirometry. She was placed on Lovenox for DVT prophylaxis. She was given pain management. She had urinary retention. She was given prn catheterization. Wound was clean and dry. She was ambulating well with physical therapy. She was recommended front wheel walker for home use. She had good pain control. She was eventually discharged home. FINAL DIAGNOSES: End-stage degenerative joint disease of the right knee status post right total knee arthroplasty Urinary retention, resolved DISPOSITION: Patient was discharged home. DISCHARGE MEDICATIONS: Refer to Discharge Medication List. DISCHARGE INSTRUCTIONS: Follow-up in a week. I have been assigned to complete a discharge summary on this account, I was not involved with the patient's management.--SAVANNA Ryder Jacqueline Robles NP Apr 06, 2019 22:33
== END 2019-04-04 13:36 | disposition home or self-care (01) | DRG 470 ==
LOC: SDSOVERFLO 05:39 → 3E 10:40
PROC: 0SRC0J9 Replacement of Right Knee Joint with Synthetic Substitute, Cemented, Open Approach (ICD-10-PCS; principal; 2019-03-31 07:30)
DX: M17.11 Unilateral primary osteoarthritis, right knee (principal); R33.9 Retention of urine, unspecified; K21.9 Gastro-esophageal reflux disease without esophagitis; V79.9 Bus occupant (driver) (passenger) injured in unspecified traffic accident; I10 Essential (primary) hypertension
CPT/HCPCS: 36415; 80048; 85007; 85025; 86850; 86900; 86901; 87081; 94003; 94150; C9399; J2405